=== PATIENT | male | born 1950 ===

== ENCOUNTER 2017-04-15 13:02 | Emergency (ER) | payer MEDICARE ==
[2017-04-15] MEDS ORDERED: 0.9 % SODIUM CHLORIDE 1000ML 1,000 ML IV PRN (13:30)
--- NOTE | 2017-04-15 13:30 | Emergency Department Record ---
History of Present Illness - General Chief Complaint: Chest Pain Stated Complaint: CHEST PAIN DIZZY Time Seen by Provider: 04/15/17 13:23 Source: Patient, RN notes reviewed Mode of Arrival: Ambulatory - History of Present Illness Initial Comments: HEAVINESS IN THE chest and this started at 9 am today and he is diabetic and smokes 1ppd and no alcohol and no previous heart problems one stress test done 3 years ago but he doesn't remember who did that. Hypercholestolemia MD Complaint: Chest pain Onset/Timin -: Hour(s) Onset: During rest Pain Location: Left chest Severity: Moderate Severity scale (1-10): 4 Quality: Aching, Dull Consistency: Constant Improves With: Nothing Worsens With: Nothing Context: New medications - Related Data Home Medications Medication Instructions Recorded Confirmed Last Taken Aspirin 325 mg PO DAILY 04/15/17 04/15/17 1 Day Ago ~04/14/17 Calcium Carbonate/Vitamin D3 1 each PO DAILY 04/15/17 04/15/17 1 Day Ago [Calcium 500-Vit D3 200 Tablet] ~04/14/17 Dulaglutide [Trulicity] 1.5 mg SQ WEEKLY 04/15/17 04/15/17 1 Day Ago ~04/14/17 Metformin HCl [Metformin HCl ER] 1,000 mg PO BID 04/15/17 04/15/17 1 Day Ago ~04/14/17 Ramipril 10 mg PO DAILY 04/15/17 04/15/17 1 Day Ago ~04/14/17 Simvastatin 40 mg PO DAILY 04/15/17 04/15/17 1 Day Ago ~04/14/17 Sitagliptin Phosphate [Januvia] 50 mg PO DAILY 04/15/17 04/15/17 1 Day Ago ~04/14/17 Allergies Allergy/AdvReac Type Severity Reaction Status Date / Time Penicillins Allergy ANAPHYLAXIS Verified 04/15/17 13:15 Travel Screening - Travel/Exposure Within Last 30 Days Have you traveled within the last 30 days?: No - Travel/Exposure Within Last Year Have you traveled outside the [place] in the last year?: No - Additonal Travel Details Have you been exposed to anyone with a communicable illness?: No - Travel Symptoms Symptom Screening: None Review of Systems Reviewed: No additional complaints except as noted below Constitutional: Reports: As per HPI. Denies: Chills, Fever, Malaise, Night sweats, Weakness, Weight change Eyes: Reports: As per HPI. Denies: Eye discharge, Eye pain, Photophobia, Vision change ENT: Reports: As per HPI. Denies: Congestion, Dental pain, Ear pain, Epistaxis , Hearing loss, Throat pain Respiratory: Reports: As per HPI. Denies: Cough, Dyspnea, Hemoptysis, Stridor, Wheezes Cardiovascular: Reports: As per HPI, Chest pain. Denies: Arrhythmia, Dyspnea on exertion, Edema, Murmurs, Orthopnea, Palpitations, Paroxysmal nocturnal dyspnea, Rheumatic Fever, Syncope Endocrine: Reports: As per HPI. Denies: Fatigue, Heat or cold intolerance, Polydipsia, Polyuria Gastrointestinal: Reports: As per HPI. Denies: Abdominal pain, Constipation, Diarrhea, Hematemesis, Hematochezia, Melena, Nausea, Vomiting Genitourinary: Reports: As per HPI. Denies: Dysuria, Frequency, Hematuria, Incontinence, Retention, Testicular pain, Testicular mass, Urgency Musculoskeletal: Reports: As per HPI. Denies: Arthralgia, Back pain, Gout, Joint swelling, Myalgia, Neck pain Skin: Reports: As per HPI. Denies: Bruising, Change in color, Change in hair/ nails, Lesions, Pruritus, Rash Neurological: Reports: As per HPI. Denies: Abnormal gait, Confusion, Headache, Numbness, Paresthesias, Seizure, Tingling, Tremors, Vertigo, Weakness Psychiatric: Reports: As per HPI. Denies: Anxiety, Auditory hallucinations, Depression, Homicidal thoughts, Suicidal thoughts, Visual hallucinations Hematological/Lymphatic: Reports: As per HPI. Denies: Anemia, Blood Clots, Easy bleeding, Easy bruising, Swollen glands Past Medical History - SOCIAL HISTORY Smoking Status: Current every day smoker Alcohol Use: None, Rare Drug Use: None - RESPIRATORY Hx Respiratory Disorders: No - CARDIOVASCULAR Hx Cardio Disorders: No - NEURO Hx Dizziness: Yes (for 2 weeks) - GI Hx Reflux: Yes - Hx Genitourinary Disorders: No - ENDOCRINE Hx Diabetes: Yes Hx Thyroid Disease: No - MUSCULOSKELETAL Hx Arthritis: Yes - PSYCH Hx Psych Problems: No - HEMATOLOGY/ONCOLOGY Hx Hematology/Oncology Disorders: No Family Medical History Any Significant Family History?: Yes Hx Heart Disease: Father *Heart Comment: exp at 70 Hx Stroke: Mother Physical Exam - General General Appearance: Alert, Oriented x3, Cooperative, No acute distress - Head Head exam: Normal inspection - Eye Eye exam: Normal appearance, PERRL Pupils: Normal accommodation - ENT ENT exam: Normal exam, Mucous membranes moist, Normal external ear exam, Normal orophraynx, TM's normal bilaterally Ear exam: Normal external inspection. negative: External canal tenderness Nasal Exam: Normal inspection. negative: Discharge, Sinus tenderness Mouth exam: Normal external inspection, Tongue normal Teeth exam: Normal inspection. negative: Dental caries Throat exam: Normal inspection. negative: Tonsillar erythema, Tonsillar exudate - Neck Neck exam: Normal inspection, Full ROM. negative: Tenderness - Respiratory Respiratory exam: Normal lung sounds bilaterally. negative: Respiratory distress - Cardiovascular Cardiovascular Exam: Regular rate, Normal rhythm, Normal heart sounds - GI/Abdominal GI/Abdominal exam: Soft, Normal bowel sounds. negative: Tenderness - Rectal Rectal exam: Deferred - exam: Deferred - Extremities Extremities exam: Normal inspection, Full ROM, Normal capillary refill. negative: Tenderness - Back Back exam: Reports: Normal inspection, Full ROM. Denies: Muscle spasm, Rash noted, Tenderness - Neurological Neurological exam: Alert, Normal gait, Oriented X3, Reflexes normal - Psychiatric Psychiatric exam: Normal affect, Normal mood - Skin Skin exam: Dry, Intact, Normal color, Warm Course Vital Signs 04/15/17 13:05 Temperature 98.7 F Pulse Rate 74 Respiratory 16 Rate Blood Pressure 129/73 Pulse Ox 100 - Reevaluation(s) Reevaluation #1: 04/15/17 14:[address] Holguin and will transter to [facility] for cardiac workup Reevaluation #2: Patient is refusing to go to [facility] by ambulance and will only go if his drives him. I told him he could and he still refused to go by ambulance 04/15/17 14:36 Reevaluation #3: Will only give him the heparin bolus and not give him the nitro drip or heparin infusion. 04/15/17 14:38 Reevaluation #4: discussed case with Dr. Holguin and he is aware of the ambulance refusal. 04/15/17 14:40 Reevaluation #5: Bed [address] Holguin wants him to go to the ED first 04/15/17 14:42 04/15/17 14:44 Discussed case with the ED and explained the situation of him not wanting to go by ambulance. Patient accepted by Dr. Hendrix 04/15/17 14:48 Medical Decision Making - Data Complexity MDM Data: Labs Ordered and/or Reviewed, EKG Ordered and/or Reviewed (No acute changes with PVC') - Lab Data Result diagrams: 04/15/17 13:20 04/15/17 13:20 Disposition Clinical Impression: Angina at rest Chest pain Qualifiers: Chest pain type: unspecified Qualified Code(s): R07.9 - Chest pain, unspecified Disposition: Acute Care Hospital Transfer Condition: (2) Stable Forms: Patient Portal Access Time of Disposition: 14:21
[2017-04-15] MEDS ORDERED: NITROGLYCERIN 0.4MG SL TABLET #25 BTL SL PRN (13:32)
[2017-04-15 13:37] LABS: BASO % 0.2 % (0-6); HEMATOCRIT 40.9 % (42.0-52.0); HEMOGLOBIN 14.3 gm/dl (14.0-18.0); LYMPH % 32.9 % (16-45); MEAN CELL VOLUME 91.7 fl (81-97); MEAN CORPUSCULAR HEMOGLOBIN 32.1 pg (27-33); MEAN PLATELET VOLUME 9.9 fl (7.4-10.4); MONO % 7.9 % (0-9); PLATELET COUNT 275 K/uL (130-400); RED BLOOD COUNT 4.46 M/uL (4.40-5.70); WHITE BLOOD COUNT W/O DIFF 10.4 K/uL (4.2-12.2)
[2017-04-15 13:48] LABS: ANION GAP 7.1 (7-16); BLOOD UREA NITROGEN 18 mg/dL (9-20); CARBON DIOXIDE 25.9 mmol/L (22-30); CREATININE 0.7 mg/dL (0.66-1.25); EST GLOMERULAR FILTRATION RATE > 60 ml/min; GLUCOSE,RANDOM 151 mg/dL (70-110)
[2017-04-15 13:51] LABS: INR 0.88; PARTIAL THROMBOPLASTIN TIME 25.1 SECONDS (24.5-39.1)
[2017-04-15 14:01] LABS: CKMB 0.9 ug/L (0-6)
[2017-04-15] MEDS ORDERED: HEPARIN SODIUM 1000 UNIT/1 ML 10ML VIAL IVP ONE (14:08)
[2017-04-15 14:09] LABS: TROPONIN I < 0.012 ng/mL (0.00-0.034)
[2017-04-15] MEDS ORDERED: NITROGLYCERIN/D5W 50 MG/250 ML ML IV SCH (14:15)
[2017-04-15] MEDS ORDERED: HEPARIN SODIUM/D5W 25,000 UNITS/500 ML BAG IV SCH (14:15)
--- NOTE | 2017-04-16 15:13 | RADIOLOGY REPORT ---
EXAM: CHEST AP or PA ONLY HISTORY: CHEST PAIN. TECHNIQUE: A single AP upright view of the chest was performed. COMPARISON: 05/22/14. FINDINGS: The heart, mediastinum, and pulmonary vasculature are normal. The lungs are clear. There is no pneumothorax or effusion. There is a chronic ossified loose body within the left subcoracoid recess. Moderate arthritic changes are present at the right shoulder. There are no acute osseous abnormalities. IMPRESSION: STABLE CHEST WITH NO ACUTE PROCESS IDENTIFIED. JOB NUMBER: [id number] [facility]
== END 2017-04-15 15:20 | disposition short-term general hospital (02) ==
LOC: ER 13:02
DX: I20.9 Angina pectoris, unspecified (principal); R42 Dizziness and giddiness; F17.210 Nicotine dependence, cigarettes, uncomplicated; E11.9 Type 2 diabetes mellitus without complications; Z79.84 Long term (current) use of oral hypoglycemic drugs
CPT/HCPCS: 71010; 80048; 82553; 84484; 85025; 85610; 85730; 93005; 93010; 96374; 99285